=== PATIENT | male | born 1975 | race African-American/Black ===

== ENCOUNTER 2021-03-30 06:59 | Emergency (ER) | payer MEDICAID ==
[~2021-03-30] VITALS: Ht 170.2 cm; Wt 59.0 kg
[2021-03-30 07:20] VITALS: BP_SYST 125
--- NOTE | 2021-03-30 07:20 | NUR ---
Placed in room 3 . Placed on cardiac nurse specialist, blood pressure machine and pulse oximeter. To gown for exam. Side rails up.
--- NOTE | 2021-03-30 07:21 | NUR ---
Pt came into ER with C/O of right sided chest pain 10/10 non radiating aggravated with movement [id number]. Pt denies SOB denies N/V/D. Pt states he woke up with the pain [id number] ago. Pt is AAOX4 speaking full sentences VSS resting in gurney no distress noted at this time. Pt states pain is aggravated by getting himself up but once he starts walking the pain goes away. Breathing is even and unlabored.
--- NOTE | 2021-03-30 07:25 | NUR ---
ER at bedside examining patient.
[2021-03-30] MEDS ORDERED: KETOROLAC TROMETHAMINE 30 MG VIAL IVP ONE (07:30)
[2021-03-30] MEDS ORDERED: NACL 0.9% 1,000 ML IV ONE (07:30)
--- NOTE | 2021-03-30 07:39 | NUR ---
X-ray at bedside.
--- NOTE | 2021-03-30 07:42 | NUR ---
# 18 gauge angiocath placed to LAC. Use of asceptic technique. Opsite placed over site. Blood return noted. Blood for lab drawn from site. Flushed with 10 cc of normal saline. No evidence of infiltration noted. Patient tolerated well.
--- NOTE | 2021-03-30 07:51 | NUR ---
Pt ambulated to restroom for urine specimen.
--- NOTE | 2021-03-30 07:52 | NUR ---
Urine collected and sent to lab.
--- NOTE | 2021-03-30 07:52 | NUR ---
Blood collected and sent to lab.
[2021-03-30] MEDS ORDERED: IBUP-1971 PO (08:11)
--- NOTE | 2021-03-30 08:11 | NUR ---
Patient transported to radiology via gurney, accompanied by kaz.
[2021-03-30] MEDS ORDERED: IOHEXOL 350 mgI/mL, 150 ML INFUS..BTL IV ONE (08:17)
--- NOTE | 2021-03-30 08:20 | NUR ---
Pt back from CT and reattached to monitor.
[2021-03-30 08:32] LABS: EOSINOPHILS % (AUTO) 0.9 % (0.0-4.0); HEMATOCRIT 36.2 % (36-54); HEMOGLOBIN 11.9 g/dL (14.0-18.0); LYMPHOCYTES # (AUTO) 1.8 K/uL (1.0-5.5); LYMPHOCYTES % (AUTO) 46.6 % (20.5-51.5); MEAN CORPUSCULAR HEMOGLOBIN 27 pg (27-31); MEAN CORPUSCULAR HGB CONC 33 % (32-36); MEAN CORPUSCULAR VOLUME 81 fL (79.0-98.0); MONOCYTES # (AUTO) 0.4 K/uL (0.0-1.0); MONOCYTES % (AUTO) 10.6 % (1.7-9.3); PLATELET COUNT (AUTO) 366 K/uL (130-430); RED BLOOD CELL COUNT(AUTO) 4.46 MIL/uL (4.2-6.2); RED CELL DISTRIBUTION WIDTH 17.7 % (9.0-15.0); WHITE BLOOD COUNT (AUTO) 3.9 K/uL (4.8-10.8)
[2021-03-30 08:35] LABS: BASOPHILS % (AUTO) 0.3 % (0.0-2.0); NEUTROPHILS # (AUTO) 1.6 K/uL (1.8-7.7); NEUTROPHILS % (AUTO) 41.6 % (40.0-70.0)
[2021-03-30 08:43] LABS: CALCIUM 8.9 mg/dL (8.4-11.0); CREATININE 0.84 mg/dL (0.55-1.30); POTASSIUM 3.4 mmol/L (3.5-5.1)
[2021-03-30 08:47] LABS: BARBITURATE, URINE NEGATIVE (NEG <=200); BENZODIAZEPINE, URINE NEGATIVE (NEG <=150); CANNABINOID, URINE POSITIVE (NEG <=50); COCAINE, URINE NEGATIVE (NEG <=150); METHAMPHETAMINES SCREEN,URINE NEGATIVE (NEG <=500); OPIATE, URINE NEGATIVE (NEG <=100); PHENCYCLIDINE SCREEN,URINE NEGATIVE (NEG <=25); UR TRICYCLIC ANTIDEPRESSANTS NEGATIVE (NEG <=300); URINE AMPHETAMINE NEGATIVE (NEG <=500); URINE METHADONE NEGATIVE (NEG <=200); URINE OXYCODONE SCREEN NEGATIVE (NEG <=100); URINE PROPOXYPHENE SCREEN NEGATIVE (NEG <=300)
[2021-03-30 08:48] LABS: TOTAL BILIRUBIN 0.7 mg/dL (0.0-1.0)
--- NOTE | 2021-03-30 10:13 | NUR ---
Dr. Castaneda at bedside speaking with pt.
[2021-03-30 10:26] VITALS: BP_SYST 123
--- NOTE | 2021-03-30 10:27 | NUR ---
Patient given written and verbal discharge instructions and verbalizes understanding. ER MD discussed with patient the results and treatment provided. Patient in stable condition. ID arm band removed. IV catheter removed intact and dressing applied, no active bleeding. Rx of motrin given. Patient educated on pain management and to follow up with PMD. Pain Scale 0/10. Opportunity for questions provided and answered. Medication side effect fact sheet provided.
== END 2021-03-30 10:27 | disposition home or self-care (01) ==
LOC: SED 06:59
DX: R07.89 Other chest pain (principal); F10.129 Alcohol abuse with intoxication, unspecified; Y90.8 Blood alcohol level of 240 mg/100 ml or more; Z79.899 Other long term (current) drug therapy
CPT/HCPCS: 36415; 71045; 71275; 76376; 80053; 80061; 80307; 83880; 84484; 85025; 93005; 96361; 96374; 99285; G0482; J1885; J7030; Q9967

== ENCOUNTER 2021-03-31 17:12 | Emergency (ER) | payer MEDICAID ==
[~2021-03-31] VITALS: Ht 170.2 cm; Wt 65.8 kg
[~2021-03-31 17:12] MED LIST: IBUP-1971 PO
[2021-03-31 17:22] VITALS: BP_SYST 131
--- NOTE | 2021-03-31 17:22 | NUR ---
Placed in room 5 . Placed on color television console monitor, blood pressure machine and pulse oximeter. To gown for exam. Side rails up.
--- NOTE | 2021-03-31 17:27 | NUR ---
Pt came into ER with C/O of right sided chest pain [id number] 10/10 sharp nonradiating. Pt was seen yesterday by and recieved a full cardiac work up and was medicaly cleared. Pt is resting in gurney VSS no distress noted at this time. Pt denies SOB pt states he wants pain medication. Pt reports he has been drinking alcohol. Pt is currently intoxicated smelling of alcohol on the breath and hiccuping. Breathing is even and unlabored. Resting in gurbison attached to monitor.
--- NOTE | 2021-03-31 17:30 | NUR ---
ER at bedside examining patient.
[2021-03-31 17:51] VITALS: BP_SYST 131
--- NOTE | 2021-03-31 17:51 | NUR ---
Patient does not wish to proceed with medical care recommended by . Patient given information related to possible complications, up to and including , which could occur as a result of leaving hospital at this time. Patient verbalizes understanding of risks involved leaving against medical advice. Patient has signed AMA form.
--- NOTE | 2021-03-31 17:53 | NUR ---
Note mamie in ED - 03/31/21 at 1754 by ANIA Pt rewuested to leave AMA. States his friend is waiting for him outside and is his ride home.
--- NOTE | 2021-03-31 17:54 | NUR ---
Pt requested to leave AMA. States his friend is waiting for him outside and is his ride home.
== END 2021-03-31 17:54 | disposition left against medical advice (07) ==
LOC: SED 17:12
DX: R07.9 Chest pain, unspecified (principal); Z79.899 Other long term (current) drug therapy
CPT/HCPCS: 93005; 99281